=== PATIENT | female | born 1970 | race Two or more races ===

== ENCOUNTER 2017-06-29 18:39 | Emergency (ER) | payer MEDICAID ==
[~2017-06-29] VITALS: Ht 142.2 cm; Wt 88.9 kg
[2017-06-29] MEDS ORDERED: ACETAMINOPHEN 325 MG TAB PO ONE ×2 (22:12→22:15)
[2017-06-29 22:25] LABS: Basophils # (auto) 0 uL; Basophils % (auto) 0.6 % (0.0-2.0); Eosinophils # (auto) 0.1 uL; Eosinophils % (auto) 1.1 % (0.0-7.0); Hemoglobin 15.6 g/dL (12.2-16.2); Lymphocytes # (auto) 2.3 uL; Lymphocytes % (auto) 30.8 % (10.0-50.0); Mean Corpuscular Hemoglobin 30.1 pg (28.0-32.0); Mean Corpuscular Hgb Conc. 34.6 g/dL (32.0-36.0); Mean Corpuscular Volume 87.1 fL (80.0-100.0); Mean Platelet Volume 7.7 fL (6.9-10.8); Monocytes # (auto) 0.8 uL; Monocytes % (auto) 10.6 % (0.0-12.0); Neutrophils # (auto) 4.3 uL; Neutrophils % (auto) 56.9 % (37.0-80.0); Nucleated Red Blood Cells % 0.4 %; Platelet Count (auto) 219 10^3/uL (140-450); Red Cell Distribution Width 13.5 % (11.8-14.3); White Blood Cell 7.6 10^3/uL (4.4-10.8)
[2017-06-29 22:41] LABS: Albumin 3.4 g/dL (3.4-5.0); BUN/Creatinine Ratio 12.8; Calcium 8.4 mg/dL (8.5-10.1)
[2017-06-29 22:44] LABS: Bilirubin, Total 0.3 mg/dL (0.2-1.0); Total Protein 9.4 g/dL (6.4-8.2)
[2017-06-30] MEDS ORDERED: SODIUM CHLORIDE 0.9% 1,000 ML IV ONE (05:00)
[2017-06-30 10:18] LABS: Urine Bilirubin Negative (Negative); Urine Blood Negative /uL (Negative); Urine Color Yellow (Yellow); Urine Glucose 4+ mg/dL (Normal); Urine Hyaline Cast FEW /lpf (0 - 2); Urine Ketone 1+ (Negative); Urine Mucus FEW (None Seen); Urine Nitrite Negative (Negative); Urine RBC 2 /hpf (0 - 4); Urine Squamous Epithelial Cell FEW /hpf (<5); Urine Urobilinogen Normal (Negative)
[2017-06-30 10:26] VITALS: BP 140/85
== END 2017-06-30 11:02 | disposition home or self-care (01) ==
LOC: ER 18:39
DX: R53.1 Weakness (principal); N39.0 Urinary tract infection, site not specified; E10.9 Type 1 diabetes mellitus without complications; B37.0 Candidal stomatitis; E66.9 Obesity, unspecified; Z68.41 Body mass index [BMI] 40.0-44.9, adult; Z90.710 Acquired absence of both cervix and uterus; Z90.49 Acquired absence of other specified parts of digestive tract
CPT/HCPCS: 36415; 71010; 80053; 81001; 82962; 85025; 93005; 96360; 99285; J7030